=== PATIENT | male | born 1950 | race Caucasian/White ===

== ENCOUNTER 2021-02-07 01:53 | Day surgery (SDC) | payer OTHER, SELFPAY ==
[2021-01-24 15:51] VITALS: BMI 25.9
[2021-02-07 11:08] VITALS: BP 145/79; PULSE 69; RESP 18; TEMP 37.1; O2SAT 98
[2021-02-07] MEDS: LACTATED RINGERS 1,000 ML 150 ML IV CONT (11:18)
--- NOTE | 2021-02-07 11:57 | WPDANESEPPF ---
Anes - Initial Pre Proc Eval Procedure: Operation Date: 02/07/21 12:30 Proposed Procedures p Screening Colonoscopy - Paul Andino MD Date/Time: 02/07/21 11:57 Surgeon: Paul Andino MD Pre Op Diagnosis: neoplsm screening Patient Data Age: 70 Gender: M Height: 1.78 m Weight: 79.9 kg Last Vital Signs Temp 98.7 F 02/07/21 11:08 Pulse 69 02/07/21 11:08 Resp 18 02/07/21 11:08 BP 145/79 H 02/07/21 11:08 Pulse Ox 98 02/07/21 11:08 Allergies Allergy/AdvReac Type Severity Reaction Status Date / Time No Known Allergies Allergy Unknown Verified 02/07/21 11:06 Home Medications Medication Instructions Recorded Confirmed Type atorvastatin 40 mg tablet 40 mg PO .COMPLEX #36 tablet 06/01/20 02/07/21 Rx fenofibrate 54 mg tablet 54 mg PO DAILY #90 tablet 06/01/20 02/07/21 Rx valsartan 320 mg tablet 320 mg PO DAILY #90 tablet 06/01/20 02/07/21 Rx aspirin 81 mg tablet,delayed 81 mg PO DAILY 12/12/20 02/07/21 History release coenzyme Q10 75 mg capsule 75 mg PO DAILY 12/12/20 02/07/21 History multivitamin 0.5 tablet PO BID 12/12/20 02/07/21 History omega-3 fatty acids 1,000 mg 1,000 mg PO DAILY 12/12/20 02/07/21 History capsule red yeast rice 600 mg PO 4XW 01/24/21 02/07/21 History Patient hx anesthesia problems: none Family hx anesthesia problems: none Results Review: All pre-operative results and documents have been reviewed as part of the pre-operative evaluation. FOR[facility]LY [facility] Past Medical History Medical History (Updated 02/07/21 @ 11:51 by Erasmo Arevalo MD) Essential (primary) hypertension Pure hypercholesterolemia, unspecified Social History Social History Smoking status: Never smoker Second hand tobacco smoke exposure: No Alcohol intake: current Alcohol use details: social Substance use: never Living arrangements: with family Spiritual care concerns: No Anes - Eval Final PreProcedure Day of Procedure 02/07/21 11:57 Patient weight: overweight Heart: regular rate and rhythm Lungs: clear to auscultation Airway: Mallampati scale class II Neurological: alert and oriented Last oral intake: >/= 8 hours ASA classification: II Emergent: no Anesthetic plan: proceed Anesthesia type and monitoring: general GIVS and standard monitoring Results Review: All pre-operative results and documents have been reviewed as part of the pre-operative evaluation. Informed Consent: The patient's anesthetic plan and its attendant risks and benefits were discussed with the patient/family/POA. Questions were solicited and answers provided to the satisfaction of the patient/family/POA.
--- NOTE | 2021-02-07 13:07 | PM.HPGS ---
History of Present Illness History of Present Illness Consent: Risks, benefits, and alternatives have been discussed and questions answered. Patient agrees to proceed with procedure. Chief complaint: neoplsm screening Narrative: José Lubin is a 70 year old male Referred for colon cancer screening. Review of Systems Review of Systems: All systems reviewed & are unremarkable except as noted in HPI and below PMFSH Past Medical History Medical History Essential (primary) hypertension Pure hypercholesterolemia, unspecified Social History Social History Smoking status: Never smoker Second hand tobacco smoke exposure: No Alcohol intake: current Alcohol use details: social Substance use: never Living arrangements: with family Spiritual care concerns: No Meds Home Medications and Allergies Home Medications Medication Instructions Recorded Confirmed Type atorvastatin 40 mg tablet 40 mg PO .COMPLEX #36 tablet 06/01/20 02/07/21 Rx fenofibrate 54 mg tablet 54 mg PO DAILY #90 tablet 06/01/20 02/07/21 Rx valsartan 320 mg tablet 320 mg PO DAILY #90 tablet 06/01/20 02/07/21 Rx aspirin 81 mg tablet,delayed 81 mg PO DAILY 12/12/20 02/07/21 History release coenzyme Q10 75 mg capsule 75 mg PO DAILY 12/12/20 02/07/21 History multivitamin 0.5 tablet PO BID 12/12/20 02/07/21 History omega-3 fatty acids 1,000 mg 1,000 mg PO DAILY 12/12/20 02/07/21 History capsule red yeast rice 600 mg PO 4XW 01/24/21 02/07/21 History Allergies Allergy/AdvReac Type Severity Reaction Status Date / Time No Known Allergies Allergy Unknown Verified 02/07/21 11:06 Vital Signs Vital Signs - 24 hr 02/07/21 11:08 Temperature 37.1 C Pulse Rate 69 Respiratory Rate 18 Blood Pressure 145/79 H Pulse Oximetry 98 Exam Resp: Auscultation: clear to auscultation bilaterally Cardio: Rate: regular rate Rhythm: regular rhythm GI: GI Palp: Yes Soft to palpation and No Tenderness to palpation present (GI) Assessment and Plan Assessment and plan (1) Screening for colon cancer: Code(s): Z12.11 - Encounter for screening for malignant neoplasm of colon Status: Acute Assessment and Plan: Colonoscopy with possible biopsy or polypectomy or cautery or injection of substances.
[2021-02-07 13:38] VITALS: BP 107/62; PULSE 47; RESP 13; O2SAT 99
[2021-02-07 13:48] VITALS: BP 104/50; PULSE 46; RESP 24; O2SAT 100
[2021-02-07 13:58] VITALS: BP 137/85; PULSE 47; RESP 14; O2SAT 100
== END 2021-02-07 14:02 | disposition home or self-care (01) ==
PROVIDERS: PCP Internal Medicine; Visit Provider Internal Medicine Gastroenterology
PROC: 0DJD8ZZ Inspection of Lower Intestinal Tract, Via Natural or Artificial Opening Endoscopic (ICD-10-PCS; CPT 45378; principal; 2021-02-07 12:30)
DX: Z12.11 Encounter for screening for malignant neoplasm of colon (principal); K64.8 Other hemorrhoids; K62.1 Rectal polyp; I10 Essential (primary) hypertension; E78.00 Pure hypercholesterolemia, unspecified; Z79.82 Long term (current) use of aspirin
CPT/HCPCS: 45385; 88305; J2704; J7120

== ENCOUNTER → 2021-05-24 09:52 | Outpatient (CLI) | payer OTHER, SELFPAY ==
[2021-05-24 14:12] LABS: Influenza A QL RT-PCR Negative (Negative); Influenza B QL RT-PCR Negative (Negative); SARS-CoV-2 RNA PCR Negative
== END ==
PROVIDERS: PCP Internal Medicine; Visit Provider Nurse Practitioner
DX: R68.89 Other general symptoms and signs (principal); Z20.822 Contact with and (suspected) exposure to COVID-19
CPT/HCPCS: 87502; C9803; U0003; U0005

== ENCOUNTER 2022-01-21 14:34 | Outpatient (CLI) | payer OTHER, SELFPAY ==
--- NOTE | 2022-01-21 14:42 | ECHO_ITS ---
Patient Info Name: José Lubin Age: 71 years : 1950 Gender: Male Ht: 70 in Wt: 180 lbs BSA: 2.02 m2 HR: 65 bpm BP: 169 / 90 mmHg Heart Rhythm: Sinus Rhythm Technical Quality: Fair Exam Date: 01/21/2022 2:58 PM Exam Location: [facility] Patient Status: Outpatient Admit Date: 01/21/2022 Staff Ordering Physician: Moses Luis APRN [employer] Officer: Janki Gutierrez RDCS Attending Provider: Kip Baird DO Referring Physician: Toby LUBIN; Exam Type: CA echo doppler color flow Study Info Indications R01.1 - Cardiac murmur, unspecified Complete two-dimensional, color flow and Doppler transthoracic echocardiogram is performed. Summary 1. Complete two-dimensional, color flow and Doppler transthoracic echocardiogram is performed. 2. Left ventricular chamber dimension is normal. 3. Left ventricular systolic function is hyperdynamic, estimated at >70%. 4. There is mildly increased left ventricular wall thickness. 5. The left ventricular diastolic function is abnormal. 6. E/e' 12 is mildly elevated. 7. Left atrial chamber dimension is mildly enlarged. 8. There is moderate aortic valve sclerosis. 9. There is mild aortic valve stenosis with a peak velocity of 275 cm/s, mean gradient of 14 mmHg, and aortic valve area of 1.8 cm2. 10. There is trace mitral valve regurgitation. 11. There is trace tricuspid valve regurgitation. 12. No pulmonary hypertension, estimated pulmonary arterial systolic pressure is 31 mmHg. 13. There is trace pulmonic regurgitation. Left Ventricle E/e' 12 is mildly elevated. Left ventricular chamber dimension is normal. Left ventricular systolic function is hyperdynamic, estimated at >70%. There is mildly increased left ventricular wall thickness. The left ventricular diastolic function is abnormal. Right Ventricle Right ventricular systolic function is normal and with normal TAPSE 2.7 cm. Right ventricular chamber dimension is normal. Left Atria Left atrial chamber dimension is mildly enlarged. Right Atria Right atrial chamber dimension is normal. Aortic Valve The aortic valve is trileaflet. There is moderate aortic valve sclerosis. There is mild aortic valve stenosis with a peak velocity of 275 cm/s, mean gradient of 14 mmHg, and aortic valve area of 1.8 cm2. There is no aortic valve regurgitation. Pulmonic Valve There is trace pulmonic regurgitation. Mitral Valve There is no mitral valve stenosis. There is trace mitral valve regurgitation. Tricuspid Valve There is trace tricuspid valve regurgitation. No pulmonary hypertension, estimated pulmonary arterial systolic pressure is 31 mmHg. Pericardium/Pleural There is no pericardial effusion. Inferior Vena Cava Normal inferior vena cava with >50% collapse upon inspiration consistent with normal right atrial pressure, 5 mmHg. Aorta The aortic root size at the sinus of Valsalva is normal. Left Ventricular Outflow Tract Name Value Normal LVOT 2D LVOT Diameter 2.0 cm LVOT Doppler LVOT Peak Gradient 10 mmHg LVOT Mean Gradient 4 mmHg
== END 2022-01-21 14:35 | disposition home or self-care (01) ==
PROVIDERS: PCP Internal Medicine; Visit Provider Internal Medicine
DX: R01.1 Cardiac murmur, unspecified (principal); I35.1 Nonrheumatic aortic (valve) insufficiency
CPT/HCPCS: 93306

== ENCOUNTER → 2023-01-21 08:21 | Outpatient (CLI) | payer OTHER, SELFPAY ==
--- NOTE | ~2023-01-21 | XR_ITS ---
EXAMINATION: XR knee LT min 4V DATE: 01/21/2023 08:47 INDICATION: Knee pain. TECHNIQUE: 4 views of left knee including standing views were obtained. COMPARISON: None. FINDINGS: Bone alignment is normal. No fracture. There is mild tricompartmental osteoarthritis. There is heterotopic ossification in the area of medial collateral ligament. There is a small knee joint e ffusion. IMPRESSION: 1. Mild left knee osteoarthritis. 2. Small left knee joint effusion. Reviewed, dictated and finalized at location E.
--- NOTE | ~2023-01-21 | XR_ITS ---
EXAMINATION: XR knee RT min 4V DATE: 01/21/2023 08:47 INDICATION: Right knee pain. TECHNIQUE: 4 views of right knee including standing views were obtained. COMPARISON: None. FINDINGS: Bone alignment is normal. No fracture. There is mild tricompartmental osteoarthritis. There is a small knee joint effusion. IMPRESSION: 1. Mild right knee osteoarthritis. 2. Small right knee joint effusion. Reviewed, dictated and finalized at location E.
== END ==
PROVIDERS: PCP Nurse Practitioner Family; Visit Provider Nurse Practitioner Family
DX: M17.0 Bilateral primary osteoarthritis of knee (principal); M25.461 Effusion, right knee; M25.462 Effusion, left knee
CPT/HCPCS: 73564